=== PATIENT | female | born 1995 | race Caucasian/White ===

== ENCOUNTER 2023-10-03 01:12 | Inpatient (IN) | payer OTHER, SELFPAY ==
--- NOTE | 2023-10-03 01:57 | PM.OBHP.1 ---
OB HPI Date/Time Date of admission: 10/03/23 Date Patient Seen: 10/03/23 Time Patient Seen: 02:00 History of Present Condition Chief complaint: Labor : 2 Para: 0 Estimated Date of Delivery: 09/20/23 Estimated Gestational Age (weeks): 41w6d Narrative: Giselle Pike is a by LMP and confirmed by 8 week ultrasound. She was referred to [facility] at 41w5d after 2 days of prodromal labor and very little progress with the licensed nuclear operator at [facility]. She had been admitted for labor evaluation and observation on 10/02/23 approx 0700 for 5 hours with no cervical change so discharged home; had cervical exam rechecked approx midnight with no change. She requested transfer to [facility] for labor augmentation and pain management at [facility]. Giselle had good care with [facility] (licensed nuclear operator Judy De Luna) x 15 visits. Her was overall very normal complicated only by 3 ultrasounds unable to see heart well enough to confirm 4 chambers. Her pre- BMI was 32 and her current weight is 285 lbs, but she was not weighed during so total weight gain is estimated at 25 lbs by previous provider. Giselle has a history of Graves disease, with normal thyroid labs during , history of migraine headaches, history of anxiety and depression, currently takes 5 mg escitalopram each day at night. Giselle is here with her , Ben, and they are excited to meet their son, Kishor Blackburn. They also have a auxiliary powerplant operator team who are not present at admission. Giselle desires Vitamin K and Hepatitis B vaccinations for her son; she declines eye ointment. She did not bring her plan to hospital; now just wants sleep and pain relief. Indications Indication for induction OB: post dates Other reason(s) for admission: History of Present care: good care, initiated at week # (10), number of visits (15) and pounds weight gain (unknown) Dating criteria: LMP confirmed by 1st trimester US (at 8 weeks) Ultrasounds: normal mid trimester US (but optimal visualization of 4 chambered heart not achieved despite 3 ultrasounds (21, 28, 32 weeks); anterior placenta without previa) Obstetrical complications: none Medical complications: none (normal TSH in ) Preadmission Labs Blood type: O (+) positive -: Antibody screen: negative, Cystic fibrosis screen: unknown, GBS status: negative, HBsAG: negative, HIV: negative, HSV 1: negative, HSV 2: negative and RPR/VDLR: negative -: Chlamydia screen: not detected and Gonorrhea screen: not detected -: Rubella: immune and Varicella: unknown HCT: 36.7 HCAB: negative PAP: Normal (10/2022) Cell-free DNA: NIPT negative x 4, XY 1 hr GTT: 93 Prior (ies) History: History of miscarriage x 1 Evaluation Evaluation Baseline heart rate: 125 Variability: Moderate (11-25) (5-25) monitor accelerations: Present Monitor Decelerations: Absent Contraction Frequency (minutes): 10 (irregular, 5-10) Uterine Contraction Intensity: Moderate (to palpation) Status: Category l Dilation (cm): 3 Effacement (%): 90 Dilation: 3-4 cm Effacement: >/=80% station: -2 Position of cervix: mid Consistency: soft Borden score: 9 PFSH Medical History (Updated 10/03/23 @ 02:48 by Herlinda Bob CNM, NILAM) Anxiety Depression Graves disease Migraine Family History Grandmother Glaucoma Grandfather Diabetes mellitus Aunt Depression Graves disease Mother Graves disease Social History (Updated 10/03/23 @ 02:05 by Herlinda Bob CNM, NILAM) marital status: household members: spouse lives independently: Yes Smoking Status: Unknown if ever smoked alcohol intake: former Meds Home Medications and Allergies Home Medications Medication Instructions Recorded Confirmed Type escitalopram oxalate 10 mg tablet 5 mg PO DAILY 10/03/23 10/03/23 History Allergies Allergy/AdvReac Type Severity Reaction Status Date / Time No Known Drug Allergies Allergy Verified 10/03/23 02:11 Review of Systems Review of Systems Narrative: Negative except as mentioned in HPI OB Exam Vital signs Blood Pressure: 134/84 Pulse Rate: 77 Respiratory Rate: 16 Temperature: 97.0 F HENMT Head: normal to inspection and normocephalic Resp Effort & Inspection: normal respiratory effort and able to speak in complete sentences Cardio Rate: regular rate Rhythm: regular rhythm Extremities Lower extremity: Yes normal to inspection GI Other: Gravid uterus, term Presentation: vertex Estimated Weight (lbs): 10 Amniotic Fluid: no fluid (membranes intact) Objective Labs 10/03/23 02:00 Labs: O positive blood type confirmed Antibody screen negative on admit Assessment and Plan Assessment and Plan Assessment and Plan narrative: at 41w6d Post dates GBS neg Rh positive Pre- BMI 32 Anxiety and depression History of graves disease History of migraine headache FHR Cat 1 Intact membranes Prolonged early labor Plan: Admit to L&D. Discuss options for pain management; Giselle opts for morphine rest at this time, will likely want epidural later. Ordered 20 mg morphine and 50 mg vistaril to be given IM Recommend initiating pitocin augmentation due to Borden score 9; discussed that contractions will be more intense and more frequent. Continuous monitoring Admission labs drawn Records received from LM, reviewed Maternal weight confirmed Anticipate
[2023-10-03 02:18] LABS: Add Manual Diff / Slide Review NO; Basophils Absolute Auto 200 /uL (0-100); Basophils Percent Auto 1.9 % (0-2); Eosinophils Absolute Auto 100 /uL (0-450); Eosinophils Percent Auto 0.4 % (2-4); Hematocrit 37.7 % (36-46); Hemoglobin 12.8 g/dL (12.0-16.0); Lymphocytes Absolute Auto 2200 /uL (1100-4500); Lymphocytes Percent Auto 16.7 % (25-40); Mean Corpuscular HGB Conc 33.9 % (30-36); Mean Corpuscular Hemoglobin 29.1 PG (26-34); Mean Corpuscular Volume 85.8 fL (80-100); Monocytes Absolute Auto 700 /uL (0-900); Monocytes Percent Auto 5.7 % (3-14); Neutrophils Absolute Auto 9700 /uL (1500-7000); Neutrophils Percent Auto 75.3 % (50-75); Platelet Count 203 X10^3/uL (150-400); Red Blood Cell Count 4.39 X10^6/uL (4.0-5.2); Red Cell Distribution Width 14.2 % (11.6-14.8); White Blood Cell Count 12.9 X10^3/uL (4.5-11.0)
[2023-10-03] MEDS: hydrOXYzine 50 MG/ML INJ IM (02:50)
[2023-10-03 02:55] VITALS: BP 134/84; PULSE 77; RESP 16; TEMP 36.1
[2023-10-03] MEDS: MORPHINE 10 MG/ML INJ 20 MG IM (03:00)
[2023-10-03] MEDS: OXYTOCIN PREMIX 30 UNIT/500 ML PLAST..BAG IV (03:35)
[2023-10-03] MEDS: ESCITALOPRAM 10 MG TABLET 5 MG PO (03:35)
[2023-10-03] MEDS: LACTATED RINGERS 1,000 ML 100 ML IV ×2 (03:36→22:17)
[2023-10-03 04:12] VITALS: BP 134/84
--- NOTE | 2023-10-03 07:33 | PM.AN.REGBLK ---
Regional Block Pre-procedure Procedure: Continuous Lumbar Epidural for L&D Attending OB provider: Herlinda Bob PMH/ROS narrative: 28 yo female, G1PO at 41 6/7 weeks with spontaneous labor, pitocin gtt desires epidural. Platelets today 203. Neg systems review. BMI 44. R/B discussed, chart reviewed. Patient agrees to continue. Exam narrative: Mall 3, dentition intact, no piercings. Good neck ROM, large neck circumference. At risk for difficult airway. ASA Class: III Labs: Hct 37.7 % (36-46) 10/03/23 02:00 Plt Count 203 X10^3/uL (150-400) 10/03/23 02:00 Medications: Current Medications Generic Name Dose Route Start Last Admin Trade Name Freq PRN Reason Stop Dose Admin Calcium Carbonate 1,000 mg 10/03/23 01:55 Calcium Carbonate 500 Mg Tab PO Q4HR PRN Dyspepsia Carboprost Tromethamine 250 mcg 10/03/23 01:55 Carboprost 250 Mcg/Ml Ampul IM Q90M PRN Bleeding Fentanyl 50 mcg 10/03/23 01:55 Fentanyl 100 Mcg/2 Ml Inj IV Q1H PRN Pain, Moderate (4-6) Oxytocin/Lactated Ringer's 30 unit in 500 mls @ 200 mls/hr 10/03/23 01:55 Oxytocin Premix IV CONT PRN Bleeding Protocol Tranexamic Acid 1,000 mg/ 100 mls @ 200 mls/hr 10/03/23 01:55 Sodium Chloride IV NOW PRN Bleeding Oxytocin/Lactated Ringer's 30 unit in 500 mls @ 2 mls/hr 10/03/23 02:00 10/03/23 03:35 Oxytocin Premix IV 2 milliunit/min TITRATE JANIS 2 mls/hr Administration Protocol 2 MILLIUNIT/MIN Lactated Ringer's 1,000 mls @ 100 mls/hr 10/03/23 02:00 10/03/23 03:36 Lactated Ringers IV 100 mls/hr CONT JANIS Administration Lidocaine HCl 20 ml 10/03/23 01:55 Lidocaine 1% 20 Ml INJ INTRA-OP PRN Post Delivery Methylergonovine Maleate 0.2 mg 10/03/23 01:55 Methylergonovine 0.2 Mg Tablet PO Q6HR PRN Heavy Bleeding Methylergonovine Maleate 0.2 mg 10/03/23 01:55 Methylergonovine 0.2 Mg/Ml Vial IM NOW PRN Bleeding Mineral Oil 30 ml 10/03/23 01:55 Mineral Oil 30 Ml Udc TOP PRN PRN Version Misoprostol 800 mcg 10/03/23 01:55 Misoprostol 200 Mcg Tablet NV NOW PRN Bleeding Misoprostol 400 mcg 10/03/23 01:55 Misoprostol 200 Mcg Tablet SL NOW PRN Bleeding Morphine Sulfate 20 mg 10/03/23 03:18 10/03/23 03:00 Morphine 10 Mg/Ml Inj IM 20 mg Q4HR PRN Administration Pain, Severe (7-10) Naloxone HCl 0.2 mg 10/03/23 01:55 Naloxone 0.4 Mg/Ml Vial IV Q2MIN PRN Opiate Reversal Ondansetron HCl 4 mg 10/03/23 01:55 Ondansetron 4 Mg/2 Ml Inj IV Q4HR PRN Nausea And Vomiting Oxytocin 10 unit 10/03/23 01:55 Oxytocin 10 Unit/Ml Vial IM NOW PRN Bleeding Sodium Chloride 10 ml 10/03/23 09:00 Sodium Chloride 0.9% Flush IV BID JANIS Sodium Chloride 10 ml 10/03/23 01:55 Sodium Chloride 0.9% Flush IV PRN PRN Flush Allergies: Allergies Allergy/AdvReac Type Severity Reaction Status Date / Time No Known Drug Allergies Allergy Verified 10/03/23 02:11 Procedure Insertion date: 10/03/23 Insertion time: 07:03 Prep/Local: 1% lidocaine (Chloraprep, dried x 3 min) Interspace: L4-5 Patient position: sitting Needle: 17 gauge Tuohy Loss of resistance with: saline ARIS at (cm): 8 Catheter placed at SKIN (cm): 15 Catheter in SPACE (cm): 7 Sensory level: umbilicus Insertion: No CSF, No Blood, No Paresthesia with insertion, No Paresthesia with injection and No Test dose reaction Initial Medications TEST DOSE time: 07:05 BOLUS DOSE time: 07:10 Infusion Initial rate (mL/hr): 8 Subsequent interventions: PCEA 4 ml/15min Post-procedure Anesthesia date START: 10/03/23 Anesthesia time START: 07:01 Anesthesia date END: 10/03/23 Anesthesia time END: 07:25 Post-procedure Anesthesia Assessment: Yes CV function: HR/BP stable, Yes Resp function: RR/sat/airway adequate, Yes Post-op hydration adequate, Yes Pain control adequate, Yes Nausea & vomiting absent, No Temperature > 36 C, Yes Mental status appropriate and No Anesthesia complications
--- NOTE | 2023-10-03 07:55 | PM.OBPNLAB ---
Date/Time Date Patient Seen: 10/03/23 Time Patient Seen: 07:50 Pain Control Pain control: epidural Comments: Giselle working hard with contractions, did not get much relief from morphine and vistaril, asked approx 0530 that pitocin not be turned up due to significant pain and exhaustion. Then asked for pitocin to be turned off until she got her epidural. Now comfortable with epidural. Pelvic Exam Dilation (cm): 3 Effacement (%): 90 station: -1 Amniotic membrane status: Intact Comments: Exam not repeated. Contractions Monitor mode: External Pitocin rate (mU/min): 3 Contraction frequency (min): 3 (q 3-4 min x 20-30 seconds) Contraction pattern: Irregular Contraction intensity: Moderate (to palpation) Status status: Category l Heart Rate Baseline: 125 Monitor Accelerations: Absent Monitor Decelerations: Absent Monitor Variability: Moderate Assessment and Plan Assessment: induction ongoing Plan: begin patient augmentation (again) Comments: Pitocin turned off per patient preference until epidural was placed. Back on at 2 mu/min at 0708. Recheck cervix in 3 hours.
--- NOTE | 2023-10-03 13:03 | PM.OBPNLAB ---
Date/Time Date Patient Seen: 10/03/23 Time Patient Seen: 12:15 Pain Control Pain control: epidural Comments: Giselle feeling pressure in her low back and bottom, requesting exam. Epidural not covering her R side, so anesthesia also in room for assistance. Pelvic Exam Dilation (cm): 7 Effacement (%): 90 station: -1 Amniotic membrane status: Intact Contractions Pitocin rate (mU/min): 14 Contraction frequency (min): 3 Contraction duration (min): 1 Contraction pattern: Regular Contraction intensity: Moderate (to palpation) Status status: Category ll Heart Rate Baseline: 130 Monitor Accelerations: Present Monitor Decelerations: Variable Monitor Variability: Moderate Assessment and Plan Assessment: active labor Plan: continuous present management Comments: with post dates at 41w6d FHR Cat 2 GBS neg Active labor Fetus vertex, direct OP Continue titrating pitocin Recommend position changes to help baby rotate into OA position Anticipate
[2023-10-03] MEDS: FENT 2MCG/ML BUPIV 0.125% EPI 200 MCG/100 ML PLAST..BAG 6 MCG EPIDURAL ×2 (15:02→20:15)
--- NOTE | 2023-10-03 19:45 | P.PNOB_ITS ---
Date/Time Date Patient Seen: 10/03/23 Time Patient Seen: 19:45 Pain Control Pain control: epidural Comments: Giselle laboring with epidural and pharmaceutical process engineer support. Feeling lots of rectal pressure, so pushing with contractions, pulling on rope hung on squat bar. Breathing with contractions. Disappointed to hear that she's not actually completely dilated and desires more epidural pain relief. VS: 140/78 P 80 bpm SpO2 95% Pelvic Exam Dilation (cm): 9 Effacement (%): 90 station: 0 Amniotic membrane status: Intact Comments: Difficult to palpate bag of water. Cervical dilation not symmetrical; more cervix on maternal R Contractions Monitor mode: External Pitocin rate (mU/min): 16 Contraction frequency (min): 3 Contraction duration (min): 1 Contraction pattern: Regular Contraction intensity: Moderate (to palpation) Status status: Category ll Heart Rate Baseline: 155 Monitor Accelerations: Present Monitor Decelerations: Recurrent and Variable (enedina to 100) Monitor Variability: Moderate Assessment and Plan Assessment: active labor Plan: continuous present management Comments: Review good cervical change, position improved byt baby still rotating. Recommend no more pushing, press epidural button, rest. Review BP in labor; labile with range 111/59 to 150s/80s. Recheck cervix in 2-3 hours.
[2023-10-03] MEDS: diphenhydrAMINE 50 MG/ML VIAL 25 MG IV (20:07)
[2023-10-03 23:15] LABS: Add Manual Diff / Slide Review NO; Basophils Absolute Auto 0 /uL (0-100); Basophils Percent Auto 0.2 % (0-2); Eosinophils Absolute Auto 0 /uL (0-450); Eosinophils Percent Auto 0.1 % (2-4); Hematocrit 38.4 % (36-46); Hemoglobin 13.1 g/dL (12.0-16.0); Lymphocytes Absolute Auto 1000 /uL (1100-4500); Lymphocytes Percent Auto 5.7 % (25-40); Mean Corpuscular Hemoglobin 29.1 PG (26-34); Mean Corpuscular Volume 85.6 fL (80-100); Monocytes Absolute Auto 900 /uL (0-900); Monocytes Percent Auto 4.9 % (3-14); Neutrophils Absolute Auto 15500 /uL (1500-7000); Neutrophils Percent Auto 89.1 % (50-75); Platelet Count 170 X10^3/uL (150-400); Red Blood Cell Count 4.49 X10^6/uL (4.0-5.2); Red Cell Distribution Width 14.3 % (11.6-14.8); White Blood Cell Count 17.4 X10^3/uL (4.5-11.0)
[2023-10-03 23:24] LABS: Alanine Aminotransferase 12 IU/L (<35); Albumin 3.5 g/dL (3.5-5.0); Albumin Globulin Ratio 1.3 (1.0-2.8); Alkaline Phosphatase 156 U/L (38-126); Aspartate Aminotransferase 25 IU/L (14-36); BUN Creatinine Ratio 9.3 (6-22); Bilirubin Total 0.5 mg/dL (0.2-1.3); Blood Urea Nitrogen 15 mg/dL (7-17); Calcium 9.3 mg/dL (8.4-10.2); Carbon Dioxide 19 mmol/L (22-32); Chloride 108 mmol/L (98-107); Estimated Glomerular Filt Rate 44 mL/min (>60); Globulin 2.8 g/dL (1.7-4.1); Glucose 88 mg/dL (70-100); HEMOLYSIS < 15 (0-50); Potassium 4.5 mmol/L (3.4-5.1); Sodium 134 mmol/L (137-145); Total Protein 6.3 g/dL (6.3-8.2)
--- NOTE | 2023-10-04 00:14 | PM.OBPNLAB ---
Date/Time Date Patient Seen: 10/04/23 Time Patient Seen: 00:14 Pain Control Pain control: epidural Comments: Giselle is pushing with contractions in a variety of positions. Denies headache, epigastric pain, visual changes. Pelvic Exam Dilation (cm): 10 Effacement (%): 100 station: +1 Amniotic membrane status: Intact Comments: Over the course of the day, BP has been labile, increasing, urine output was initially normal, but decreasing. 600 ml was noted from admission to 1448 (approx 13 hours) but since then urine output has been minimal. PET panel run; labs normal except for elevated serum creatinine, 1.6. Protein/creatinine ratio pending. Contractions Monitor mode: External Pitocin rate (mU/min): 16 Contraction frequency (min): 3 Contraction duration (min): 1 Contraction pattern: Regular Contraction intensity: Moderate (to palpation) Status status: Category ll Heart Rate Baseline: 135 Monitor Accelerations: Present Monitor Decelerations: Absent Monitor Variability: Marked (x 12 minutes which resolved with position changes at 0, and Moderate) Assessment and Plan Comments: at 42w0d by LMP Pre-eclampsia with severe features GBS negative Rh positive FHR Cat 2 2nd stage labor Consult with Dr. Doty re: pre-eclampsia with severe features who recommends starting magnesium sulfate at 4 mg bolus, followed by 2 g continuous dose. Use BP meds PRN for severe range pressures. Anticipate .
[2023-10-04 00:25] LABS: Creatinine Urine Random 112.61 mg/dL
[2023-10-04] MEDS: MAGNESIUM SULFATE 4 GM/100 ML PIGGYBACK IV (00:51)
[2023-10-04 01:10] LABS: Protein (Total) Urine Random 2452 mg/dL (0-12); Protein Creatinine Ratio Urine 21.77 GRAM/24H
[2023-10-04] MEDS: MAGNESIUM SULFATE 20 GM/500 ML IV.SOLN IV ×3 (01:47→22:24)
--- NOTE | 2023-10-04 03:25 | PM.OBPNLAB ---
Date/Time Date Patient Seen: 10/04/23 Time Patient Seen: 03:00 Pain Control Pain control: epidural Comments: Giselle has been pushing very well for most of 4 hours. vertex at +2 station. CNM attempted to rotate baby, with Giselle's consent, do what you have to do - baby did not rotate at all; confirmed OP positioning and noted more caput on posterior vertex. Giselle is having trouble focusing and communicating. Feeling sensitive and painful and does not want to push anymore. Consents to primary . VS at 0212: BP 139/59 HR 96 bpm SpO2 97% Vital signs at 0251: BP 163/78 Pulse 101 bpm SpO2 98% Temp: 36. C (temporal) Vital signs at 0311: BP 117/70 PUlse 104 bpm SpO2: 96% Pelvic Exam Dilation (cm): 10 Effacement (%): 100 station: +2 ( caput) Amniotic membrane status: Intact Contractions Monitor mode: External Pitocin rate (mU/min): 6 Contraction frequency (min): 3 Contraction duration (min): 1 Contraction pattern: Regular Contraction intensity: Moderate (to palpation) Status status: Category ll Heart Rate Baseline: 130 Monitor Accelerations: Present Monitor Decelerations: Variable Monitor Variability: Moderate Comments: Monitoring by hand holding. Assessment and Plan Comments: at 42w0d Pre-eclampsia with severe features, on magnesium sulfate Oligouria Rh pos GBS neg At risk for hemorrhage FHR Cat 2 Prolonged second stage malposition (ROP) Dr. Doty called to bedside to review plan of care and get recommendations Recommend primary due to malposition and prolonged 2nd stage. Continue magnesium sulfate for 12-24 hours , depending on labs. Check magnesium levels now with repeat PET panel when 2nd IV is placed. Repeat labs q 12-24 hours. Plan for 48 hour stay due to severe pre-eclampsia to ensure labs returning to baseline and urine output returns to normal.
--- NOTE | 2023-10-04 03:41 | PM.CN ---
History of Present Illness Consult details Date Patient Seen: 10/04/23 Time Patient Seen: 03:41 Chief complaint: Labor & Delivery Reason for consult: Prolonged second stage of labor, possible instument assisted delivery Requesting provider: Herlinda Bob Narrative: Patient is a 28-year-old 2 para 0 at 42 weeks' gestation by an 8 week ultrasound who has had a prolonged second stage of labor of approximately 4 hours. Consult was obtained regarding assisted delivery with vacuum. Patient presented as a transfer of care at 1:00 a.m. on September 30, 2023 from [facility] in [place]. She had a prodrome of labor and wanted pain relief. She was 3 cm on admission and received an epidural for pain relief. Pitocin augmentation was started. She progressed very slowly to complete dilation and has had a prolonged second stage. As second stage was starting she had some elevated blood pressures in the severe range. Labs were sent and creatinine was found to be at 1.6, platelets 170, and urine protein at 2.4 g. She was started on magnesium sulfate with a 4 g load and then 2 grams/hour. She has had very little urine output over the last 7 hours. Patient had a 25 lb weight gain per the grounds keeper records. Dad is 6 ft 8 and was an 11 lb baby. Mom is 5 ft 7 and was a normal size baby. Her BMI was reported to be 31 in the grounds keeper office. It is 44 here in the hospital. Meds Home Medications and Allergies Home Medications Medication Instructions Recorded Confirmed Type escitalopram oxalate 10 mg tablet 5 mg PO DAILY 10/03/23 10/12/23 History ibuprofen 600 mg tablet 600 mg PO Q6H PRN pain #30 tabs 10/06/23 10/12/23 Rx oxycodone 5 mg tablet 5 mg PO Q4H PRN pain #20 tabs 10/06/23 10/12/23 Rx Allergies Allergy/AdvReac Type Severity Reaction Status Date / Time No Known Drug Allergies Allergy Verified 10/12/23 14:29 Exam Narrative Exam Narrative: Generally: Patient lying in bed tilted to the left, with an epidural in place, aware of contractions. Extremities: 2+ DTRs in the upper extremities. 1+ pitting edema. No clonus Vaginal exam: Caput is at the +2 station. Bony part of the head at -1 to 0 station. Objective Labs 10/05/23 06:03 10/05/23 06:03 Labs: Laboratory Results - last 24 hr 10/03/23 10/03/23 22:55 23:55 WBC 17.4 H RBC 4.49 Hgb 13.1 Hct 38.4 MCV 85.6 MCH 29.1 MCHC 34.0 RDW 14.3 Plt Count 170 Neut % (Auto) 89.1 H Lymph % (Auto) 5.7 L Granite % (Auto) 4.9 Eos % (Auto) 0.1 L Baso % (Auto) 0.2 Neut # (Auto) 92076 H Lymph # (Auto) 1000 L Granite # (Auto) 900 Eos # (Auto) 0 Baso # (Auto) 0 Sodium 134 L Potassium 4.5 Chloride 108 H Carbon Dioxide 19 L BUN 15 Creatinine 1.62 H Estimated GFR 44 L BUN/Creatinine Ratio 9.3 Glucose 88 Calcium 9.3 Total Bilirubin 0.5 AST 25 ALT 12 Alkaline Phosphatase 156 H Total Protein 6.3 Albumin 3.5 Globulin 2.8 Albumin/Globulin Ratio 1.3 U Random Total Protein 2452 H Urine Creatinine 112.61 Protein/Creatinin Ratio 21.77 [facility] Medical History (Updated 10/04/23 @ 15:51 by Farzaneh Luther DO) Anxiety Depression Graves disease Migraine Family History Grandmother Glaucoma Grandfather Diabetes mellitus Aunt Depression Graves disease Mother Graves disease Social History marital status: household members: spouse lives independently: Yes Tobacco & Substance Use Smoking Status: Unknown if ever smoked alcohol intake: former Assessment & Plan Assessment & Plan narrative: Assessment: 28-year-old 2 para 0 at 42 weeks' gestation with a prolonged second stage of labor, and failure of further descent of the bony part of the head past -1 to 0 station. Possible asynclitic presentation Severe preeclampsia on magnesium sulfate Elevated creatinine level Plan: Second IV placed and repeat labs drawn Green catheter to be placed in the operating room with a urimeter Repeat preeclampsia labs Elevation of the head in OR before prep Ancef 3gm IV, and Azithromycin 500mg IV prophylaxis The risks, benefits, and alternatives to the procedure were explained to the patient. The risks including bleeding, infection, injury to the bowel, bladder, or ureters. She understands these risks and agrees to proceed. A full par Q was held and consent form was signed.
[2023-10-04] MEDS: CITRIC ACID/SODIUM CITRATE 15 ML SOLUTION 30 ML PO (04:16)
[2023-10-04 04:23] LABS: Add Manual Diff / Slide Review NO; Basophils Absolute Auto 0 /uL (0-100); Eosinophils Absolute Auto 0 /uL (0-450); Hematocrit 37.9 % (36-46); Hemoglobin 12.7 g/dL (12.0-16.0); Lymphocytes Absolute Auto 800 /uL (1100-4500); Lymphocytes Percent Auto 3.5 % (25-40); Mean Corpuscular HGB Conc 33.5 % (30-36); Mean Corpuscular Volume 86.4 fL (80-100); Monocytes Absolute Auto 1200 /uL (0-900); Neutrophils Absolute Auto 21300 /uL (1500-7000); Neutrophils Percent Auto 91.5 % (50-75); Platelet Count 178 X10^3/uL (150-400); Red Blood Cell Count 4.38 X10^6/uL (4.0-5.2); Red Cell Distribution Width 14.6 % (11.6-14.8); White Blood Cell Count 23.3 X10^3/uL (4.5-11.0)
[2023-10-04 04:32] LABS: Alanine Aminotransferase 13 IU/L (<35); Albumin 3.5 g/dL (3.5-5.0); Albumin Globulin Ratio 1.3 (1.0-2.8); Alkaline Phosphatase 185 U/L (38-126); Aspartate Aminotransferase 30 IU/L (14-36); BUN Creatinine Ratio 8.6 (6-22); Bilirubin Total 0.7 mg/dL (0.2-1.3); Blood Urea Nitrogen 17 mg/dL (7-17); Carbon Dioxide 16 mmol/L (22-32); Chloride 107 mmol/L (98-107); Estimated Glomerular Filt Rate 35 mL/min (>60); Globulin 2.6 g/dL (1.7-4.1); Glucose 134 mg/dL (70-100); HEMOLYSIS < 15 (0-50); Potassium 4.5 mmol/L (3.4-5.1); Sodium 132 mmol/L (137-145); Total Protein 6.1 g/dL (6.3-8.2)
[2023-10-04 04:33] LABS: Magnesium 4.2 mg/dL (1.6-2.3)
[2023-10-04] MEDS: CEFAZOLIN VIAL 3 GM in SODIUM CHLORIDE 0.9% 100 ML IV (04:39)
[2023-10-04] MEDS: AZITHROMYCIN 500 MG in DEXTROSE 5% IN WATER 250 ML 250 MG IV (04:41)
[2023-10-04 04:42] LABS: Creatinine Urine Random > 346.50 mg/dL; Protein (Total) Urine Random 475 mg/dL (0-12); Protein Creatinine Ratio Urine 1.37 GRAM/24H
--- NOTE | 2023-10-04 05:03 | SUR.OPER ---
Supine on Padded OR bed, head on pillow, safety belt at thigh, arms secured on padded arm boards at <90 degrees abduction. Bump under right buttock. Legs uncrossed with pillow under knees, gel pad to heels, tape over blanket to lower legs.
[2023-10-04] MEDS: SODIUM CHLORIDE 0.9% 1,000 ML 84 ML IV (05:52)
[2023-10-04 06:07] VITALS: BP 138/74; PULSE 82; RESP 22; TEMP 36.6; O2SAT 97
--- NOTE | 2023-10-04 06:10 | PM.OBCS.1 ---
Operative Date/Time/Diagnoses Date of procedure: 10/04/23 Time of procedure: 06:10 Pre-op diagnosis: Forty-two weeks' gestation Stage II arrest of labor Large for gestational age infant Severe preeclampsia Post-op diagnosis: same Procedure & Clinicians Procedure: Primary low-transverse section Same procedure as scheduled: Yes Indications: 28-year-old 2 para 0 at 42 weeks' gestation with a prolonged stage I of labor and a prolonged stage II of labor with no further descent of the head. Severe preeclampsia. Not a candidate for an instrumented delivery Surgeon: Yeimi Doty Click Yes if Unassisted: No Subway Operator: Herlinda Bob Reason for Subway Operator: The hospital clinic assistant was necessary to retract upon entry into the abdomen and uterus. She assisted with delivery of the infant with elevation of the head and fundal pressure. She assisted with closure with retraction, clipping of suture, and closure of the contralateral fascia. Anesthesia Type: Epidural Operative Notes Findings: Live male Left occiput posterior presentation Extension of the uterine incision on the right side Normal uterus, tubes, and ovaries Closure Type: primary Specimen(s): cord blood, cord pH and placenta Intraoperative meds administered: Duramorph, Pitocin and Tranexamic acid Applied: Catheter (To continuous drainage) Estimated Blood Loss (mL): 450 Blood products transfused: none Procedure in detail: The patient was taken to the operating room where she was placed in the dorsal supine position with a leftward tilt. Using a sterile glove, the head was lifted from below. She was prepped and draped in the usual sterile fashion. A timeout was performed. Epidural analgesia was found to be inadequate at the skin level. 20 cc of 0.25% Marcaine were injected in the subcutaneous level. A Pfannenstiel skin incision was made 2 fingerbreadths above the pubic symphysis and carried through to the underlying layer of fascia. The fascia was nicked in the midline, and the incision extended bilaterally with the Gore scissors. The superior aspect of the fascial incision was grasped with a [place] clamps, elevated, and the underlying rectus muscles dissected off sharply and bluntly. Attention was then turned to the inferior aspect of this incision which in a similar fashion was grasped with a Fei clamps, elevated, and the underlying rectus muscles dissected off sharply and bluntly. The rectus muscles were in the midline. The peritoneum was identified, grasped between 2 hemostats, and entered sharply with the Metzenbaum scissors. This incision was extended superiorly and inferiorly with good visualization of the bladder. The bladder blade was inserted. The vesicouterine peritoneum was identified, grasped with the pickup, and entered sharply with the Metzenbaum scissors. This incision was extended bilaterally, and the bladder flap was created digitally. The bladder blade was reinserted. The lower uterine segment was incised in a transverse fashion with the scalpel. Upon entering the amniotic sac there was thick meconium stained amniotic fluid. The 's head was delivered with assistance of the nurse elevating from below. The nose and mouth were suctioned with bulb suction. The remainder of the body delivered without difficulty. The cord was double clamped and cut after one minute. The infant was handed off to waiting RN and RT. The placenta was delivered by expression. The uterus was cleared of all clots and debris. There was found to be an extension of the uterine incision on the right side. This was repaired in a running interlocking suture with #1 chromic. The uterine incision was repaired with #1 chromic in a running interlocking fashion, and a second layer the same suture was used for an imbricating layer. Hemostasis was achieved. The tubes and ovaries were examined and were found to be normal. The gutters were cleared of all clots and debris. The parietal peritoneum was closed using 2-0 Vicryl in a running fashion. The fascia was reapproximated using 0 Vicryl in a running fashion. The subcutaneous layer was copiously irrigated with warm normal saline. 7 simple interrupted sutures of 3-0 Vicryl were placed to reapproximate the subcutaneous layer. The skin was closed with 4-0 Monocryl in a subcuticular fashion. Steri-Strips were placed. A harlan dressing was placed. The uterus was expressed of a small amount of old blood. Sponge, lap, and instrument counts were correct x-2. The patient tolerated the procedure well, and was taken to PACU in stable condition. Complications: none Baby 1: Gender: Male Presentation: vertex Position: Left Occiput Posterior Placental Delivery Description: Spontaneous Cord Vessel Description: 3 Vessels and Clamped/Cut (After 1 minute) score (1 min): 8 score (5 min): 9 weight: 9 lb 9.9 oz Post-operative Condition: stable Disposition: PACU Aftercare: routine postop
[2023-10-04 06:12] VITALS: BP 136/81; PULSE 87; RESP 18; O2SAT 97
[2023-10-04 06:17] VITALS: BP 135/76; PULSE 84; RESP 16; O2SAT 97
[2023-10-04 06:22] VITALS: BP 130/77; PULSE 102; RESP 19; TEMP 36.6; O2SAT 98
[2023-10-04 06:23] LABS: Cord Venous Blood pH 7.28 (7.25-7.45)
[2023-10-04 10:28] VITALS: TEMP 37.2
[2023-10-04] MEDS: KETOROLAC 30 MG/ML VIAL IV ×3 (10:28→22:20)
[2023-10-04] MEDS: PRENATAL VIT,CALC/IRON/FOLIC 1 TABLET 1 TAB PO (10:30)
[2023-10-04] MEDS: DOCUSATE 100 MG CAPSULE PO (10:30)
[2023-10-04 13:43] LABS: Add Manual Diff / Slide Review NO; Basophils Absolute Auto 0 /uL (0-100); Basophils Percent Auto 0.1 % (0-2); Eosinophils Absolute Auto 0 /uL (0-450); Hematocrit 32.9 % (36-46); Hemoglobin 10.9 g/dL (12.0-16.0); Lymphocytes Absolute Auto 1500 /uL (1100-4500); Lymphocytes Percent Auto 6.9 % (25-40); Mean Corpuscular Hemoglobin 29.2 PG (26-34); Mean Corpuscular Volume 88.3 fL (80-100); Monocytes Absolute Auto 1000 /uL (0-900); Monocytes Percent Auto 4.4 % (3-14); Neutrophils Absolute Auto 19400 /uL (1500-7000); Neutrophils Percent Auto 88.6 % (50-75); Platelet Count 178 X10^3/uL (150-400); Red Blood Cell Count 3.72 X10^6/uL (4.0-5.2); Red Cell Distribution Width 14.7 % (11.6-14.8); White Blood Cell Count 21.9 X10^3/uL (4.5-11.0)
[2023-10-04 14:07] VITALS: TEMP 36.9
[2023-10-04] MEDS: OXYCODONE IR 5 MG TABLET PO (14:07)
[2023-10-04 14:11] LABS: Aspartate Aminotransferase 32 IU/L (14-36); BUN Creatinine Ratio 12.2 (6-22); Blood Urea Nitrogen 14 mg/dL (7-17); Estimated Glomerular Filt Rate > 60 mL/min (>60); Uric Acid 9.6 mg/dL (2.5-6.2)
[2023-10-04 14:25] LABS: Magnesium 5.3 mg/dL (1.6-2.3)
--- NOTE | 2023-10-04 15:43 | PM.OBPN.1 ---
Subjective - OB Subjective Patient comments: pain well controlled [place] baby status: doing well feeding status: exclusively breast feeding Narrative: 28yo [id number] s/p PLTCS for arrest of descent, with pre-e with severe features (Cr 1.62-->1.97-->1.15). Patient reports feeling well, states her pain is well controlled. She has been up to the chair, but remains on magnesium for seizure prophylaxis. She currently denies headache, vision changes, right upper quadrant pain, chest pain, or shortness of breath. Date Patient Seen: 10/04/23 Time Patient Seen: 15:44 Exam Vital Signs (past 8 hours): - 10/04/23 10:28 10/04/23 14:07 Temperature 99.0 F 98.4 F Oxygen Delivery Method Room Air Narrative Exam Narrative: Vitals reviewed in OBIX, blood pressures normal-mild range, normal heart rate UOP approx 208cc/hr over the last 6hrs Const General: comfortable and No acute distress Resp Effort & Inspection: normal respiratory effort and able to speak in complete sentences Skin Other: Lower abdomen with bandage in place Neuro General: patient alert and patient awake Cognition: normal cognition Speech: speech normal Extrem General: No calf tenderness and edema (+1 pitting edema bilaterally) Psych Mood: congruent mood Affect: normal affect Objective Labs 10/04/23 12:54 10/04/23 12:54 Labs: Laboratory Results - last 24 hr 10/03/23 10/03/23 10/04/23 22:55 23:55 03:50 WBC 17.4 H 23.3 H RBC 4.49 4.38 Hgb 13.1 12.7 Hct 38.4 37.9 MCV 85.6 86.4 MCH 29.1 29.0 MCHC 34.0 33.5 RDW 14.3 14.6 Plt Count 170 178 Neut % (Auto) 89.1 H 91.5 H Lymph % (Auto) 5.7 L 3.5 L [place] % (Auto) 4.9 5.0 Eos % (Auto) 0.1 L 0.0 L Baso % (Auto) 0.2 0.0 Neut # (Auto) 48528 H 07902 H Lymph # (Auto) 1000 L 800 L [place] # (Auto) 900 1200 H Eos # (Auto) 0 0 Baso # (Auto) 0 0 Cord VBG pH Sodium 134 L 132 L Potassium 4.5 4.5 Chloride 108 H 107 Carbon Dioxide 19 L 16 L BUN 15 17 Creatinine 1.62 H 1.97 H Estimated GFR 44 L 35 L BUN/Creatinine Ratio 9.3 8.6 Glucose 88 134 H Uric Acid Calcium 9.3 9.0 Magnesium 4.2 H Total Bilirubin 0.5 0.7 AST 25 30 ALT 12 13 Alkaline Phosphatase 156 H 185 H Total Protein 6.3 6.1 L Albumin 3.5 3.5 Globulin 2.8 2.6 Albumin/Globulin Ratio 1.3 1.3 U Random Total Protein 2452 H Urine Creatinine 112.61 Protein/Creatinin Ratio 21.77 10/04/23 10/04/23 10/04/23 04:00 05:00 12:54 WBC 21.9 H RBC 3.72 L Hgb 10.9 L Hct 32.9 L MCV 88.3 MCH 29.2 MCHC 33.0 RDW 14.7 Plt Count 178 Neut % (Auto) 88.6 H Lymph % (Auto) 6.9 L [place] % (Auto) 4.4 Eos % (Auto) 0.0 L Baso % (Auto) 0.1 Neut # (Auto) 06908 H Lymph # (Auto) 1500 [place] # (Auto) 1000 H Eos # (Auto) 0 Baso # (Auto) 0 Cord VBG pH 7.28 Sodium Potassium Chloride Carbon Dioxide BUN 14 Creatinine 1.15 H Estimated GFR > 60 BUN/Creatinine Ratio 12.2 Glucose Uric Acid 9.6 H Calcium Magnesium 5.3 H* Total Bilirubin AST 32 ALT Alkaline Phosphatase Total Protein Albumin Globulin Albumin/Globulin Ratio U Random Total Protein 475 H Urine Creatinine > 346.50 Protein/Creatinin Ratio 1.37 Assessment & Plan Assessment and Plan (1) Severe pre-eclampsia: Status: Acute (2) Delivery by section using transverse incision of lower segment of uterus: Status: Acute (3) Obesity affecting : Status: Acute Plan day: 1 plan OB: routine postop care Comments: 28yo [id number] POD#0 s/p PLTCS early this morning for arrest of descent in the setting of pre-eclampsia with severe features. Her urine output has been more than adequate in the period, and her creatinine is downtrending. Her magnesium level is in the therapeutic range, and she has no signs or symptoms of toxicity at this time. -plan for discontinuation of magnesium infusion at 24hrs ; d/c [place] at that time as well -would recommend Lovenox for VTE prophylaxis, given risk factors of BMI >40, pre-e w/ SF, and c/s; patient to start tomorrow, and recommend continuation for 10 days -repeat labs in the morning to ensure continued downtrending of creatinine -continue routine postop care Time Spent With Patient Time: Total time spent is greater than 50% in coordination of care (as documented) at patient's floor/unit and/or counseling patient: Time with patient: 15-24 minutes
[2023-10-04] MEDS: ACETAMINOPHEN 325 MG TABLET 650 MG PO (22:22)
[2023-10-04] MEDS: ESCITALOPRAM 10 MG TABLET 5 MG PO (22:22)
[2023-10-04] MEDS: LANOLIN OINT 7 GM 1 APPLIC TOP (22:23)
[2023-10-05 02:14] VITALS: BP 102/69; PULSE 86; RESP 18; TEMP 37.1
[2023-10-05] MEDS: KETOROLAC 30 MG/ML VIAL IV (05:04)
[2023-10-05] MEDS: ACETAMINOPHEN 325 MG TABLET 650 MG PO ×4 (05:05→22:17)
[2023-10-05 06:20] LABS: Add Manual Diff / Slide Review NO; Basophils Absolute Auto 0 /uL (0-100); Eosinophils Absolute Auto 0 /uL (0-450); Eosinophils Percent Auto 0.1 % (2-4); Hematocrit 27.7 % (36-46); Hemoglobin 9.4 g/dL (12.0-16.0); Lymphocytes Absolute Auto 1200 /uL (1100-4500); Lymphocytes Percent Auto 7.2 % (25-40); Mean Corpuscular Hemoglobin 29.3 PG (26-34); Mean Corpuscular Volume 86.3 fL (80-100); Monocytes Absolute Auto 900 /uL (0-900); Monocytes Percent Auto 5.3 % (3-14); Neutrophils Absolute Auto 14900 /uL (1500-7000); Neutrophils Percent Auto 87.4 % (50-75); Platelet Count 172 X10^3/uL (150-400); Red Blood Cell Count 3.21 X10^6/uL (4.0-5.2); Red Cell Distribution Width 14.4 % (11.6-14.8); White Blood Cell Count 17.1 X10^3/uL (4.5-11.0)
[2023-10-05 06:26] LABS: Alanine Aminotransferase 13 IU/L (<35); Albumin 2.8 g/dL (3.5-5.0); Albumin Globulin Ratio 1.1 (1.0-2.8); Alkaline Phosphatase 120 U/L (38-126); Aspartate Aminotransferase 26 IU/L (14-36); BUN Creatinine Ratio 16.3 (6-22); Bilirubin Total 0.4 mg/dL (0.2-1.3); Blood Urea Nitrogen 15 mg/dL (7-17); Calcium 7.9 mg/dL (8.4-10.2); Carbon Dioxide 22 mmol/L (22-32); Chloride 108 mmol/L (98-107); Estimated Glomerular Filt Rate > 60 mL/min (>60); Globulin 2.6 g/dL (1.7-4.1); Glucose 161 mg/dL (70-100); HEMOLYSIS < 15 (0-50); Potassium 3.8 mmol/L (3.4-5.1); Sodium 135 mmol/L (137-145); Total Protein 5.4 g/dL (6.3-8.2)
[2023-10-05] MEDS: OXYCODONE IR 5 MG TABLET PO ×2 (11:05→17:36)
[2023-10-05] MEDS: PRENATAL VIT,CALC/IRON/FOLIC 1 TABLET 1 TAB PO (11:07)
[2023-10-05] MEDS: DOCUSATE 100 MG CAPSULE PO (11:08)
[2023-10-05] MEDS: ENOXAPARIN 40 MG/0.4 ML SYRINGE SUBCUT (11:56)
--- NOTE | 2023-10-05 14:05 | PM.OBPN.1 ---
Subjective - OB Subjective Patient comments: no complaints, pain well controlled, tolerating diet, flatus present and other (Voiding without the catheter) baby status: doing well and nursing well feeding status: exclusively breast feeding Date Patient Seen: 10/05/23 Time Patient Seen: 14:06 Interval history: Postop day # 1 status post primary low-transverse section for a stage II arrest of labor. Once baby was delivered, urine output significantly increased. She has been able to void without the catheter. Magnesium sulfate was stopped. Her creatinine has returned to normal. is going well. She is ambulating without assistance. She has showered. No headache or visual changes Exam Vital Signs (past 8 hours): Oxygen Delivery Method Room Air Narrative Exam Narrative: Generally: Patient is sitting up in bed, holding , no acute distress Lungs: Clear to auscultation bilaterally Cardiovascular: Regular rate and rhythm Fundus: Firm at U -1 Incision: Clean dry and intact with STEPHANIE dresssing Extremities: 1+ edema, negative Homans, 1+ DTRs Objective Labs 10/05/23 06:03 10/05/23 06:03 Labs: Laboratory Results - last 24 hr 10/04/23 10/05/23 12:54 06:03 WBC 17.1 H RBC 3.21 L Hgb 9.4 L Hct 27.7 L MCV 86.3 MCH 29.3 MCHC 34.0 RDW 14.4 Plt Count 172 Neut % (Auto) 87.4 H Lymph % (Auto) 7.2 L [place] % (Auto) 5.3 Eos % (Auto) 0.1 L Baso % (Auto) 0.0 Neut # (Auto) 27494 H Lymph # (Auto) 1200 [place] # (Auto) 900 Eos # (Auto) 0 Baso # (Auto) 0 Sodium 135 L Potassium 3.8 Chloride 108 H Carbon Dioxide 22 BUN 14 15 Creatinine 1.15 H 0.92 Estimated GFR > 60 > 60 BUN/Creatinine Ratio 12.2 16.3 Glucose 161 H Uric Acid 9.6 H Calcium 7.9 L Magnesium 5.3 H* Total Bilirubin 0.4 AST 32 26 ALT 13 Alkaline Phosphatase 120 D Total Protein 5.4 L Albumin 2.8 L Globulin 2.6 Albumin/Globulin Ratio 1.1 Assessment & Plan Assessment and Plan (1) Severe pre-eclampsia: Status: Acute (2) Delivery by section using transverse incision of lower segment of uterus: Status: Acute (3) Obesity affecting : Status: Acute Plan day: 1 Comments: Begin subQ Lovenox 40 mg once a day Begin injection teaching for the patient to do Lovenox at home Anticipate discharge October 06, 2023 Time Spent With Patient Time: Total time spent is greater than 50% in coordination of care (as documented) at patient's floor/unit and/or counseling patient: Time with patient: 15-24 minutes
[2023-10-05] MEDS: SIMETHICONE 80 MG TABLET 160 MG PO ×2 (14:20→22:16)
[2023-10-05] MEDS: OXYCODONE IR 10 MG TABLET PO (22:17)
[2023-10-05] MEDS: IBUPROFEN 600 MG TABLET PO (22:18)
[2023-10-06] MEDS: ACETAMINOPHEN 325 MG TABLET 650 MG PO ×2 (04:22→10:34)
[2023-10-06] MEDS: IBUPROFEN 600 MG TABLET PO ×2 (04:22→10:34)
[2023-10-06] MEDS: OXYCODONE IR 5 MG TABLET PO (04:23)
[2023-10-06] MEDS: SIMETHICONE 80 MG TABLET 160 MG PO (09:18)
[2023-10-06] MEDS: DOCUSATE 100 MG CAPSULE PO (09:18)
[2023-10-06] MEDS: ESCITALOPRAM 10 MG TABLET 5 MG PO (09:18)
[2023-10-06] MEDS: PRENATAL VIT,CALC/IRON/FOLIC 1 TABLET 1 TAB PO (09:18)
[2023-10-06] MEDS: ENOXAPARIN 40 MG/0.4 ML SYRINGE SUBCUT (09:20)
--- NOTE | 2023-11-09 23:49 | P.DS_ITS ---
Discharge Providers Provider Date of admission: 10/03/23 01:12 Discharge Date: 10/06/23 Consults: 10/03/23 01:55 Consult to Anesthesiology Urgent Comment: Consulting Provider: Anesthesiologist Reason for consultation: Epidural Has provider been notified: No 10/04/23 07:14 Consult to Rehabilitation Psychologist Routine Comment: Discharge provider: Yeimi Doty MD Summary Hospital Course Date Patient Seen: 10/06/23 Time Patient Seen: 12:30 Diagnoses: 41-6/7 weeks gestation Prolonged latent phase of labor Epidural analgesia Prolonged second stage of labor Preeclampsia with severe features Magnesium sulfate prophylaxis Primary low-transverse section Hospital Course: Patient is a 28-year-old 2 para 1 who presented on October 06, 2023 at 41- ,6/7 weeks gestation for labor augmentation and pain management. She was a transfer of care from the [facility] due to prodromal labor. She was initially started on Pitocin and then declined until epidural placed. Epidural was placed for pain management. Pitocin was initiated. She was initially 3 cm/90%/-1 station at 7:30 a.m.. At 12:15 p.m. she had progressed to 7 cm/90%/-1 station. At 7:45 p.m. she was 9 cm/90%/0 station. At 12:15 a.m. on October 03, 2022 she was complete and +1 station. She pushed for 4 hours and then a consultation to OB was initiated. Patient was found to be in the occiput posterior presentation and at 0--1 station. She was not a candidate for an assisted delivery. A decision was made to proceed to a primary low-transverse section. She underwent this procedure without complication. Also during the latter stages of labor she was found to have decreased urine output and a creatinine of 1.6. She was started on magnesium sulfate for presumed severe preeclampsia. Once the delivery occurred patient had adequate urine output for the remainder of her stay. She did have some elevated blood pressures in the severe range during the latter stages of labor as well. Her course was unremarkable. She was discharged home on October 06, 2023 on day # 2. Peripartum Data Infant Delivery Method: Section Procedures: Epidural analgesia Primary low-transverse section complications: none [place] 1: Gender: Male Disposition of : home Discharge Diagnosis (1) Severe pre-eclampsia: Status: Acute (2) Delivery by section using transverse incision of lower segment of uterus: Status: Acute (3) Obesity affecting : Status: Acute Status at Discharge Cognitive/behavioral status at discharge: oriented Functional status at discharge: independent ambulation Overall status at discharge: patient is progressing back to baseline Time Spent with Patient Time attestation: Total time spent providing and/or coordinating discharge services: Time spent: Less than 30 minutes Objective Labs 10/05/23 06:03 10/05/23 06:03 Exam Vital Signs (past 8 hours): Oxygen Delivery Method Room Air Narrative Exam Narrative: Generally: Patient is sitting up in bed, holding infant, no acute distress Lungs: Clear to auscultation bilaterally Cardiovascular: Regular rate and rhythm Fundus: Firm at U -1 Incision: Clean dry and intact with Aquacel dressing Extremities: 1+ pitting edema, negative Homans, 1+ DTRs Discharge Plan Discharge Plan Patient Disposition: Home Provider Discharge Comment: Call with fever, chills, redness or drainage around the incision, or bleeding vaginally more than a pad in an hour Ibuprofen 600 mg every 6 hours as needed Tylenol 1000 mg every 8 hours as needed Continue vitamins Push oral fluids Keep legs and feet elevated Call with headache, blurred vision, or spots before your eyes Discharge orders & Medications Prescriptions: New ibuprofen 600 mg tablet 600 mg PO Q6H PRN (Reason: pain) Qty: 30 2RF oxycodone 5 mg tablet 5 mg PO Q4H PRN (Reason: pain) Qty: 20 0RF Continued escitalopram oxalate 10 mg tablet 5 mg PO DAILY Rx Instructions: Take 1/2 tablet daily before bed Follow up/Referrals: Yeimi Doty MD [Physician] - (Appointment with on at 2:45pm) Diet/Activity/Treatments Diet: Regular Activity: No heavy lifting Nothing in the vagina for 6 weeks Skin/Wound/Dressing Care Report to your healthcare provider any signs of infection, such as:: chills, fever, increased pain, unusual drainage and unusual redness Visit Report/Discharge Packet Instructions: DI for , DI for Prescription Opioid Use Stand Alone Forms: Patient Portal/API, Stroke Signs & Symptoms
== END 2023-10-06 12:14 | disposition home or self-care (01) | DRG 788 ==
PROVIDERS: Obstetrics & Gynecology; Student in an Organized Health Care Education/Training Program; Admitting Provider Advanced Practice Midwife; Referring Provider Advanced Practice Midwife; Visit Provider Advanced Practice Midwife
PROC: 10D00Z1 Extraction of Products of Conception, Low, Open Approach (ICD-10-PCS; CPT 59514; principal; 2023-10-04 04:00)
DX: O14.14 Severe pre-eclampsia complicating childbirth (principal); O99.214 Obesity complicating childbirth; O63.1 Prolonged second stage (of labor); O32.8XX0 Maternal care for other malpresentation of fetus, not applicable or unspecified; O76 Abnormality in fetal heart rate and rhythm complicating labor and delivery; O36.63X0 Maternal care for excessive fetal growth, third trimester, not applicable or unspecified; O75.81 Maternal exhaustion complicating labor and delivery; O48.0 Post-term pregnancy; Z3A.42 42 weeks gestation of pregnancy; Z37.0 Single live birth
CPT/HCPCS: 36415; 59050; 59514; 80053; 82570; 83735; 84156; 84450; 84550; 85025; 86850; 86900; 86901; 99232; G0379; J0690; J1200; J1650; J1885; J2250; J2270; J2274; J2405; J2590; J3010; J3410; J3475